=== PATIENT | male | born 1970 | race Caucasian/White ===

== ENCOUNTER 2016-07-28 17:42 | Emergency (ER) | payer OTHER ==
[2016-07-28] MEDS ORDERED: DAPTOMYCIN 800 MG in SODIUM CHLORIDE 0.9% 100 ML IV SCH (18:30)
[2016-07-28 19:06] LABS: CALCIUM 9.4 mg/dL (8.6-10.3)
== END 2016-07-28 20:29 | disposition home or self-care (01) ==
LOC: ED 17:42
DX: T84.54XA Infection and inflammatory reaction due to internal left knee prosthesis, initial encounter (principal); Y83.8 Other surgical procedures as the cause of abnormal reaction of the patient, or of later complication, without mention of misadventure at the time of the procedure; Y92.9 Unspecified place or not applicable
CPT/HCPCS: 82550; 87070; 80048; 87205; 99283 ×2; 96365; J7050; J0878

== ENCOUNTER 2016-08-04 10:14 | Inpatient (IN) | payer OTHER ==
[~2016-08-04 10:14] MED LIST: IV START KIT ONE; SODIUM CHLORIDE 0.9% 1,000 ML ONE
[2016-08-04] MEDS ORDERED: GABAPENTIN 600 MG TABLET PO ONE (10:15)
[2016-08-04] MEDS ORDERED: TRANEXAMIC ACID 1,000 MG in SODIUM CHLORIDE 0.9% 100 ML IV PRN (10:15)
[2016-08-04] MEDS ORDERED: POLYMYXIN B SULFATE 500,000 UNITS, BACITRACIN 25,000 UNITS in SODIUM CHLORIDE 3 L IRRIG... IR PRN (10:15)
[2016-08-04] MEDS ORDERED: CELECOXIB 200 MG CAPSULE PO ONE (10:15)
[2016-08-04] MEDS ORDERED: ONDANSETRON 4 MG/2ML 2 ML VIAL IV ONE (10:15)
[2016-08-04] MEDS ORDERED: CLONIDINE HCL 0.1 MG/24 HR (7 DAY PATCH) TD SCH (10:15)
[2016-08-04] MEDS ORDERED: BUPIVACAINE 0.25% (MDV) 20 ML in SODIUM CHLORIDE 0.9% FLUSH 20 ML IF PRN (10:15)
[2016-08-04] MEDS ORDERED: FAMOTIDINE 20 MG TABLET PO ONE (10:15)
[2016-08-04] MEDS ORDERED: BUPIVACAINE 0.25% (MDV) 24 ML, MORPHINE SULFATE 8 MG, EPINEPHRINE 0.3 MG in SODIUM CHLO... IF PRN (10:15)
[2016-08-04] MEDS ORDERED: TRAMADOL HCL 50 MG TABLET PO ONE (10:15)
[2016-08-04] MEDS ORDERED: VANCOMYCIN HCL 1 G/20 ML VIAL ONE (10:15)
[2016-08-04] MEDS ORDERED: OXYCODONE HCL 10 MG TAB.SR PO ONE ×2 (10:15→11:34)
[2016-08-04] MEDS ORDERED: CEFAZOLIN SODIUM 2 GRAM PREMIX 100 ML IV PRN (10:15)
[2016-08-04] MEDS ORDERED: TOBRAMYCIN SULFATE 40 MG/ML 2ML VIAL ONE (10:15)
[2016-08-04] MEDS ORDERED: TRAMADOL HCL 50 MG TABLET ONE (11:34)
[2016-08-04] MEDS ORDERED: CLONIDINE HCL 0.1 MG/24 HR (7 DAY PATCH) TD ONE (11:35)
[2016-08-04] MEDS ORDERED: FAMOTIDINE 20 MG TABLET ONE (11:35)
[2016-08-04] MEDS ORDERED: ONDANSETRON 4 MG/2ML 2 ML VIAL ONE (11:35)
[2016-08-04] MEDS ORDERED: GABAPENTIN 600 MG TABLET ONE (11:35)
[2016-08-04] MEDS ORDERED: CELECOXIB 200 MG CAPSULE ONE (11:36)
[2016-08-04] MEDS ORDERED: ROPIVACAINE 0.5% 30 ML VIAL ONE (12:38)
[2016-08-04] MEDS ORDERED: NERVE BLOCK PROCEDURAL TRAY 1 EACH ONE (12:39)
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
[2016-08-04] MEDS ORDERED: BUPIVACAINE 0.75% SPINAL AMPUL 2 ML ONE (13:28)
[2016-08-04] MEDS ORDERED: NALOXONE HCL 0.4 MG/ML VIAL IV PRN (13:49)
[2016-08-04] MEDS ORDERED: HYDROMORPHONE HCL 1 MG/ML SYRINGE IV PRN ×2 (13:49→17:44)
[2016-08-04] MEDS ORDERED: HYDRALAZINE HCL 20 MG/1 ML VIAL IV PRN (13:49)
[2016-08-04] MEDS ORDERED: LABETALOL HCL 5 MG/ML 20ML VIAL IV PRN (13:49)
[2016-08-04] MEDS ORDERED: ON-Q PUMP/ROPIVACAINE 0.2% 450 ML in PREMIX BAG 1 EACH NB PRN ×2 (13:49→17:44)
[2016-08-04] MEDS ORDERED: ATROPINE SULFATE 0.4 MG/1 ML VIAL IV PRN (13:49)
[2016-08-04] MEDS ORDERED: PROMETHAZINE HCL 25 MG/ML VIAL IM PRN (13:49)
[2016-08-04] MEDS ORDERED: MEPERIDINE 25 MG/ML SYRINGE IV PRN (13:49)
[2016-08-04] MEDS ORDERED: FENTANYL 100 MCG/2 ML VIAL IV PRN (13:49)
[2016-08-04] MEDS ORDERED: ONDANSETRON 4 MG/2ML 2 ML VIAL IV PRN ×2 (13:49→17:44)
[2016-08-04] MEDS ORDERED: LACTATED RINGERS 1,000 ML IV SCH (14:00)
[2016-08-04] MEDS ORDERED: EPHEDRINE SULFATE UD SYR 25 MG 25 MG/5 ML SYRINGE IV ONE (14:22)
[2016-08-04] MEDS ORDERED: PROPOFOL 20 ML IV ONE ×7 (14:47→16:57)
[2016-08-04 15:01] LABS: BODY FLUID COLOR RED
[2016-08-04 15:02] LABS: BODY FLUID APPEARANCE BLOODY; BODY FLUID RBC 420 k/uL; BODY FLUID WBC 13687 /uL
[2016-08-04 15:04] LABS: BODY FLUID SOURCE KNEE
[2016-08-04] MEDS ORDERED: CEFAZOLIN SODIUM 1,000 MG VIAL ONE (15:38)
[2016-08-04 15:49] LABS: BODY FLUID MONONUCLEAR 8 %; BODY FLUID NEUTROPHIL 92 %
[2016-08-04] MEDS ORDERED: ON-Q PUMP/ROPIVACAINE 0.2% 450 ML ONE (16:41)
[2016-08-04] MEDS ORDERED: MIDAZOLAM HCL 5 MG/5 ML VIAL ONE (16:55)
[2016-08-04] MEDS ORDERED: FENTANYL 250 MCG/5 ML AMP ONE (16:56)
--- NOTE | 2016-08-04 17:14 | PCMBPN ---
Brief Post Op Note: Date of Procedure: 08/04/16 Preoperative Diagnosis: septic LTKA with chronic infected hematoma left leg Postoperative Diagnosis: same Procedure: I/D left knee with poly exchange Surgeon: Omar Tatum MD Assist: Zenon (JUNE) Anesthesia: spinal/add block (Breann) Findings: infrequent clusters >5 WBC/HPF on all three specimens, grossly healthy appearing hypertrophic fibrous tissue intraarticular with proximal/ medial chronic hematoma with intraarticular extension Condition: stable to PAR Complications: none IV Fluids: per anesthesia Urine Output: per anesthesia Estimated Blood Loss: [] mLs Tourniquet Time: [N/A] Specimens: frozen section x3, gm stain/cx x3 Implants: 12.5 RP/PS poly Drains: incisional wound vac
[2016-08-04] MEDS ORDERED: HYDROMORPHONE HCL 1 MG/ML SYRINGE ONE (17:15)
--- NOTE | 2016-08-04 17:38 | RAD ---
LEFT KNEE 2 VIEWS HISTORY: Postop revision. Frontal and lateral radiographs of the left knee. COMPARISON: 04/04/2016 FINDINGS: POSTPROCEDURAL CHANGE: Status post total knee arthroplasty. Multiple radiodensities, correlate for an antibiotic bead placement. ALIGNMENT: Grossly anatomic. FRACTURE: None identified. Dystrophic calcifications again seen. ADDITIONAL POSTPROCEDURAL FINDINGS: Residual prepatellar soft tissue prominence. Surgical diaz. IMPRESSION: Grossly unremarkable immediate post procedural appearance of the left knee. Post arthroplasty change. Correlate for antibiotic bead placement.
[2016-08-04] MEDS ORDERED: CALCIUM CARBONATE 500 MG TAB.CHEW PO PRN (17:44)
[2016-08-04] MEDS ORDERED: KETOROLAC TROMETHAMINE 30 MG/ML 1 ML VIAL IV PRN (17:44)
[2016-08-04] MEDS ORDERED: OXYCODONE HCL 5 MG TABLET PO PRN (17:44)
[2016-08-04] MEDS ORDERED: HYDROXYZINE PAMOATE 25 MG CAPSULE PO PRN (17:44)
[2016-08-04] MEDS ORDERED: HYDROMORPHONE HCL 0.5 MG/0.5 ML SYRINGE IV PRN (18:00)
[2016-08-04] MEDS ORDERED: HYDROMORPHONE HCL 2 MG/ML SYRINGE IV PRN (18:01)
[2016-08-04 18:14] VITALS: BMI 38.9
[2016-08-04] MEDS: ACETAMINOPHEN 500 MG TABLET PO SCH ×2 (19:24→23:21)
[2016-08-04] MEDS ORDERED: PUMP TUBING ONE (19:31)
[2016-08-04] MEDS: VANCOMYCIN HCL 1.75 G in SODIUM CHLORIDE 0.9% 500 ML IV SCH (19:50)
[2016-08-04] MEDS: NS/Potassium Chlor 20 mEq 1,000 ML IV SCH (19:50)
[2016-08-04] MEDS ORDERED: INSULIN ASPART (DOSE) 100 UNITS/1 ML SUB-Q PRN (21:16)
[2016-08-04] MEDS: DOCUSATE SODIUM 100 MG CAPSULE PO SCH (21:37)
[2016-08-04] MEDS: ASCORBIC ACID 500 MG TABLET PO SCH (21:37)
[2016-08-04] MEDS: INSULIN GLARGINE (DOSE) 100 UNITS/ML UNIT SUB-Q SCH (21:56)
[2016-08-04] MEDS: OXYCODONE HCL 10 MG TAB.SR PO SCH (23:21)
[2016-08-05] MEDS ORDERED: TRAMADOL HCL 50 MG TABLET PO PRN
[2016-08-05] MEDS: VANCOMYCIN HCL 1.75 G in SODIUM CHLORIDE 0.9% 500 ML IV SCH ×3 (03:53→20:07)
[2016-08-05] MEDS: TEMAZEPAM 15 MG CAPSULE PO PRN ×2 (03:54→23:17)
[2016-08-05] MEDS: NS/Potassium Chlor 20 mEq 1,000 ML IV SCH ×3 (05:52→18:01)
[2016-08-05 06:06] LABS: HEMATOCRIT 38.1 % (32.0-52.0); HEMOGLOBIN 11.7 gm/l (14.0-18.0); MEAN CELL VOLUME 84.9 fl (80.0-94.0); MEAN CORPUSCULAR HEMOGLOBIN 26.1 pg (27.0-31.0); MEAN CORPUSCULAR HGB CONC 30.7 g/dl (33.0-37.0); RED CELL DISTRIBUTION WIDTH 14.6 % (11.5-14.5)
[2016-08-05 06:30] LABS: CALCIUM 8.5 mg/dL (8.6-10.3)
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
[2016-08-05] MEDS: ACETAMINOPHEN 500 MG TABLET PO SCH ×4 (08:09→23:15)
[2016-08-05] MEDS: ASPIRIN (ENTERIC COATED) 325 MG TABLET.EC PO SCH (08:09)
[2016-08-05] MEDS: OXYCODONE HCL 10 MG TAB.SR PO SCH ×2 (08:09→20:08)
[2016-08-05] MEDS: MULTIVITAMINS 1 TAB TABLET PO SCH (08:09)
[2016-08-05] MEDS: DOCUSATE SODIUM 100 MG CAPSULE PO SCH ×2 (08:09→20:08)
[2016-08-05] MEDS: ASCORBIC ACID 500 MG TABLET PO SCH ×2 (08:09→20:08)
[2016-08-05] MEDS: DICLOFENAC SODIUM 75 MG TABLET.EC PO SCH ×2 (08:09→20:08)
[2016-08-05] MEDS ORDERED: REMOVE PATCH 1 EACH UNIT TD SCH (10:15)
[2016-08-05] MEDS ORDERED: REMOVE PATCH 1 EACH UNIT TD ONE (11:51)
--- NOTE | 2016-08-05 12:59 | PDOC43 ---
- Subjective Chief Complaint: Left knee pain Subjective: Reports Pain Tolerable, Reports Tolerating Diet Well, Denies Fever - Objective Vital Signs Temperature 98.6 F 08/05/16 11:24 Pulse Rate 71 08/05/16 11:24 Respiratory Rate 20 08/05/16 11:24 Blood Pressure 147/92 08/05/16 11:24 O2 Saturation by Pulse Oximetry 99 08/05/16 11:24 Oxygen Delivery Method Room Air Oxygen Flow Rate 0 Intake and Output 08/04/16 08/05/16 08/06/16 06:59 06:59 06:59 Intake Total 3350 Output Total 2225 Balance 1125 General: Alert, Oriented x3, Cooperative, No Acute Distress HEENT: Mucous membr. moist/pink Lungs: Clear to Auscultation Bilaterally Cardiovascular: Regular Rate and Rhythm Abdomen: Soft, Normal Bowel Sounds, Non-Distended, No Tenderness Extremities: No Edema Skin: Warm, Dry, Intact Wound: Dressing Clean/Dry/Intact Laboratory 08/05/16 05:30 08/05/16 05:30 08/05/16 08/04/16 08/04/16 05:30 21:41 16:44 RBC 4.49 L MCH 26.1 L MCHC 30.7 L RDW 14.6 H POC Capillary Glucose 237 H 113 H Calcium 8.5 L Current Medications: Current meds reviewed in EMR. - Problems: Assessment/Plan (1) Status post total knee replacement, left Status: AcuteAssessment/Plan: S/P first stage revision arthroplasty performed on 08/[address] Tatum, bacterial infection with unspec. organism infection initial prosthesis s/p poly exchange and placement of antibiotic beads on 08/04, may benefit from ID consult prior to discharge (2) DM2 (diabetes mellitus, type 2) Qualifiers: Diabetes mellitus complication status: without complication Diabetes mellitus detention insulin use: without detention use Qualifier Code: (E11.9 ) Type 2 diabetes mellitus without complications Status: ChronicAssessment/ Plan: on Metformin - stable (3) Chronic back pain greater than 3 months duration Status: ChronicAssessment/Plan: with chronic pain controlled on NSAIDS (4) Obesity (BMI 35.0-39.9 without comorbidity) Status: ChronicAssessment/Plan: complicates care VTE Prophylaxis: aspirin plus mech measures
--- NOTE | 2016-08-05 14:17 | PDOC43 ---
- Subjective Findings: Pt was seen in the am. Sitting up in the recliner doing well. He has been up with PT walking. Subjective: Reports Pain Tolerable, Denies Chest Pain, Denies Shortness of Breath, Denies Nausea, Denies Vomiting, Denies Fever - Objective Vital Signs Temperature 98.6 F 08/05/16 11:24 Pulse Rate 71 08/05/16 11:24 Respiratory Rate 20 08/05/16 11:24 Blood Pressure 147/92 08/05/16 11:24 O2 Saturation by Pulse Oximetry 99 08/05/16 11:24 Oxygen Delivery Method Room Air Oxygen Flow Rate 0 Laboratory 08/05/16 05:30 08/05/16 05:30 08/05/16 08/04/16 08/04/16 05:30 21:41 16:44 RBC 4.49 L MCH 26.1 L MCHC 30.7 L RDW 14.6 H POC Capillary Glucose 237 H 113 H Calcium 8.5 L Active Medication Orders Category Date Time Status Acetaminophen [Tylenol] Med 08/04/16 17:44 Active 1,000 mg PO Q6H Ascorbic Acid [Vitamin C] Med 08/04/16 21:00 Active 500 mg PO BID Aspirin (Enteric Coated) [Ecotrin] Med 08/05/16 09:00 Active 325 mg PO DAILY Bisacodyl [Dulcolax] Med 08/07/16 16:39 Active 10 mg FL DAILY PRN Calcium Carbonate [Tums] Med 08/04/16 17:44 Active 1,000 - 2,000 mg PO Q2H PRN Diclofenac Sodium [Voltaren] Med 08/05/16 09:00 Active 75 mg PO BID Docusate Sodium [Colace] Med 08/04/16 21:00 Active 100 mg PO BID Hydromorphone HCl [Dilaudid] Med 08/04/16 17:44 Active 0.5 - 2 mg IV Q2H PRN Hydromorphone HCl [Dilaudid] Med 08/04/16 18:00 Active 0.5 - 2 mg IV Q2H PRN Hydromorphone HCl [Dilaudid] Med 08/04/16 18:01 Active 0.5 - 2 mg IV Q2H PRN Hydroxyzine Pamoate [Vistaril] Med 08/04/16 17:44 Active 25 - 50 mg PO Q4H PRN Insulin Aspart (Dose) [Novolog (Dose)] Med 08/04/16 21:16 Active See Protocol SUB-Q WM/BEDTIME PRN Insulin Glargine (Dose) [Lantus (Dose)] Med 08/04/16 21:30 Active 15 units SUB-Q Q24H Ketorolac Tromethamine [Toradol] Med 08/04/16 17:44 Active 30 mg IV Q6H PRN Magnesium Hydroxide [Milk of Magnesia] Med 08/05/16 16:39 Active 30 ml PO DAILY PRN Multivitamins [One-A-Day] Med 08/05/16 09:00 Active 1 tab PO DAILY NS/Potassium Chlor 20 mEq 1,000 ml Med 08/04/16 17:44 Active IV 125 mls/hr On-Q Pump/Ropivacaine 0.2% 450 ml Med 08/04/16 17:44 Active Premix Bag [Premix Fluid] 1 each NB Q50H Ondansetron 4 mg/2ml Vial [Zofran] Med 08/04/16 17:44 Active 4 - 6 mg IV Q6H PRN Oxycodone HCl [Roxicodone] Med 08/04/16 17:44 Active 5 - 15 mg PO Q3H PRN Oxycodone Sr [Oxycontin] Med 08/04/16 22:00 Active 10 mg PO Q12HR Sodium Chloride 0.9% Flush [Normal Saline 10ml Flush] Med 08/04/16 17:44 Active 10 - 50 ml IV PRN PRN Sodium Chloride 0.9% Flush [Normal Saline 10ml Flush] Med 08/05/16 09:00 Active 10 ml IV Q8HR Temazepam [Restoril] Med 08/04/16 17:44 Active 15 mg PO BEDTIME PRN Tramadol HCl [Ultram] Med 08/05/16 00:00 Active 50 mg PO Q6H PRN Vancomycin HCl 1.75 g Med 08/04/16 19:30 Active Sodium Chloride 0.9% 500 ml IV Q8H Intake and Output 08/03/16 08/04/16 08/05/16 23:59 23:59 23:59 Intake Total 2350 1000 Output Total 425 1800 Balance 1925 -800 General: Afebrile HEENT: Atraumatic Lungs: Normal Air Movement Abdomen: Non-Distended Skin: Normal Color Neurological: Alert, Oriented x 4 - Left Lower Extremity Motor: Extensor Hallucis Longus: 5/5, Tibialis Anterior: 5/5, Gastrocnemius: 5/5 , Peroneals: 5/5, Quadriceps: 3/5 Gross Sensation to Light Touch: Present: Deep Peroneal Nerve, Superficial Peroneal Nerve Motion: Calf soft NT Ind SLR Rom knee 0-50 - Problems (1) Status post total knee replacement, left Status: AcuteAssessment/Plan: Pod#1 S/P I&D for infected TKA 1. Physical Therapy:Mobilize with PT/OT 2. Pain Control:Per protocol and nerve cath 3. DVT Prophylaxis: ASA. foot pumps and mobility 4. Disposition:Doing fair. Will need PICC line and IV antibiotics. Pending C&S 5. Medical Issues: Management per hospitalist. Will need PICC and sensitivities prior to discharge (2) Status post incision and drainage Status: Acute
[2016-08-05] MEDS ORDERED: LIDOCAINE 1% (PRES FREE) 5 ML VIAL PF PRN (14:19)
[2016-08-05] MEDS ORDERED: LORAZEPAM 2 MG/ML 1ML SDV IV PRN (14:19)
[2016-08-05] MEDS ORDERED: MAGNESIUM HYDROXIDE 30 ML UDCUP PO PRN (16:39)
[2016-08-05 19:47] LABS: VANCOMYCIN TROUGH 16.7 ug/ml (5.0-10.0)
[2016-08-05] MEDS ORDERED: SODIUM CHLORIDE 0.9% 100 ML IV ONE (20:06)
[2016-08-05] MEDS: INSULIN GLARGINE (DOSE) 100 UNITS/ML UNIT SUB-Q SCH (21:25)
[2016-08-06] MEDS: VANCOMYCIN HCL 1.75 G in SODIUM CHLORIDE 0.9% 500 ML IV SCH ×3 (03:20→18:13)
[2016-08-06] MEDS: ACETAMINOPHEN 500 MG TABLET PO SCH ×3 (05:28→17:52)
[2016-08-06 06:11] LABS: HEMATOCRIT 37.4 % (32.0-52.0); HEMOGLOBIN 11.8 gm/l (14.0-18.0)
--- NOTE | 2016-08-06 08:21 | PDOC43 ---
- Subjective Subjective: Reports Pain Tolerable, Denies Nausea, Denies Vomiting, Denies Fever - Objective Vital Signs Temperature 97.5 F 08/06/16 08:02 Pulse Rate 70 08/06/16 08:02 Respiratory Rate 18 08/06/16 08:02 Blood Pressure 153/111 08/06/16 08:02 O2 Saturation by Pulse Oximetry 100 08/06/16 08:02 Oxygen Delivery Method Room Air Oxygen Flow Rate 0 Laboratory 08/06/16 05:30 08/05/16 19:20 08/05/16 08/05/16 19:20 14:14 POC Capillary Glucose 170 H Vancomycin Trough 16.7 H Active Medication Orders Category Date Time Status Acetaminophen [Tylenol] Med 08/04/16 17:44 Active 1,000 mg PO Q6H Ascorbic Acid [Vitamin C] Med 08/04/16 21:00 Active 500 mg PO BID Aspirin (Enteric Coated) [Ecotrin] Med 08/05/16 09:00 Active 325 mg PO DAILY Bisacodyl [Dulcolax] Med 08/07/16 16:39 Active 10 mg MO DAILY PRN Calcium Carbonate [Tums] Med 08/04/16 17:44 Active 1,000 - 2,000 mg PO Q2H PRN Diclofenac Sodium [Voltaren] Med 08/05/16 09:00 Active 75 mg PO BID Docusate Sodium [Colace] Med 08/04/16 21:00 Active 100 mg PO BID Hydromorphone HCl [Dilaudid] Med 08/04/16 18:00 Active 0.5 - 2 mg IV Q2H PRN Hydromorphone HCl [Dilaudid] Med 08/04/16 18:01 Active 0.5 - 2 mg IV Q2H PRN Hydroxyzine Pamoate [Vistaril] Med 08/04/16 17:44 Active 25 - 50 mg PO Q4H PRN Insulin Aspart (Dose) [Novolog (Dose)] Med 08/04/16 21:16 Active See Protocol SUB-Q WM/BEDTIME PRN Insulin Glargine (Dose) [Lantus (Dose)] Med 08/04/16 21:30 Active 15 units SUB-Q Q24H Lidocaine 1% (Pres Free) Med 08/05/16 14:19 Active 2 - 5 ml PF X1 PRN Lorazepam [Ativan] Med 08/05/16 14:19 Active 0.5 - 1 mg IV X1 PRN Magnesium Hydroxide [Milk of Magnesia] Med 08/05/16 16:39 Active 30 ml PO DAILY PRN Multivitamins [One-A-Day] Med 08/05/16 09:00 Active 1 tab PO DAILY On-Q Pump/Ropivacaine 0.2% 450 ml Med 08/04/16 17:44 Active Premix Bag [Premix Fluid] 1 each NB Q50H Ondansetron 4 mg/2ml Vial [Zofran] Med 08/04/16 17:44 Active 4 - 6 mg IV Q6H PRN Oxycodone HCl [Roxicodone] Med 08/04/16 17:44 Active 5 - 15 mg PO Q3H PRN Oxycodone Sr [Oxycontin] Med 08/04/16 22:00 Active 10 mg PO Q12HR Sodium Chloride 0.9% Flush [Normal Saline 10ml Flush] Med 08/04/16 17:44 Active 10 - 50 ml IV PRN PRN Sodium Chloride 0.9% Flush [Normal Saline 10ml Flush] Med 08/05/16 09:00 Active 10 ml IV Q8HR Temazepam [Restoril] Med 08/04/16 17:44 Active 15 mg PO BEDTIME PRN Tramadol HCl [Ultram] Med 08/05/16 00:00 Active 50 mg PO Q6H PRN Vancomycin HCl 1.75 g Med 08/04/16 19:30 Active Sodium Chloride 0.9% 500 ml IV Q8H Intake and Output 08/04/16 08/05/16 08/06/16 23:59 23:59 23:59 Intake Total 2350 3595 1870 Output Total 425 4600 2450 Balance 1925 -1005 -580 General: Afebrile, No Acute Distress Lungs: Normal Air Movement Abdomen: Soft Skin: Normal Color Neurological: Alert, Oriented x 4 Psych/Mental Status: Normal Affect, Normal Mood - Left Lower Extremity Incision: Other (incisional wound vac in place- small amount of distal bloody drainage, 1+ knee effusion, leg swelling minimal with calf soft/NT), No Drainage Motor: Extensor Hallucis Longus: 5/5, Tibialis Anterior: 5/5, Gastrocnemius: 5/5 Gross Sensation to Light Touch: Present: Deep Peroneal Nerve, Superficial Peroneal Nerve Capillary Refill: < 3 Seconds Motion: 5-75 supine AAROM - Problems (1) Status post incision and drainage Status: Acute (2) Status post total knee replacement, left Status: AcuteAssessment/Plan: Pod#2 S/P I&D for infected TKA 1. Physical Therapy:Mobilize with PT/OT- outpatient per protocol 2. Pain Control: Per protocol and nerve cath- decreased to 6cc/hr 3. DVT Prophylaxis: ASA. foot pumps and mobility 4. Disposition: Doing well. Home today after evening dose- will see Girod in AM. Discussed D/C needs 5. Medical Issues: Management per hospitalist. PICC today- will continue vanco as cultures are still pending from intraoperative. Outside Cx + for Staph epi
[2016-08-06 08:35] LABS: A1C-GLYCOHEMOGLOBIN 0.6 g/dl; HEMOGLOBIN-GLYCO 11.5 g/dl
--- NOTE | 2016-08-06 10:10 | PDOC43 ---
- Subjective Chief Complaint: Left knee pain Subjective: Reports Pain Tolerable, Reports Tolerating Diet Well, Denies Fever - Objective Vital Signs Temperature 97.5 F 08/06/16 08:02 Pulse Rate 70 08/06/16 08:02 Respiratory Rate 18 08/06/16 08:02 Blood Pressure 153/111 08/06/16 08:02 O2 Saturation by Pulse Oximetry 100 08/06/16 08:02 Oxygen Delivery Method Room Air Oxygen Flow Rate 0 Intake and Output 08/05/16 08/06/16 08/07/16 06:59 06:59 06:59 Intake Total 3350 4465 Output Total 2225 5250 Balance 1125 -785 General: Alert, Oriented x3, Cooperative, No Acute Distress HEENT: Mucous membr. moist/pink Lungs: Clear to Auscultation Bilaterally Cardiovascular: Regular Rate and Rhythm Abdomen: Soft, Normal Bowel Sounds, Non-Distended, No Tenderness Extremities: No Edema Wound: Dressing Clean/Dry/Intact Laboratory 08/06/16 05:30 08/05/16 19:20 08/06/16 08/05/16 08/05/16 05:30 19:20 14:14 POC Capillary Glucose 170 H Hemoglobin A1c 7.1 H Vancomycin Trough 16.7 H Current Medications: Current meds reviewed in EMR. - Problems: Assessment/Plan (1) Status post total knee replacement, left Status: AcuteAssessment/Plan: S/P first stage revision arthroplasty performed on 08/[address] Tatum, bacterial infection with staph epidermis involving initial prosthesis s/p poly exchange and placement of antibiotic beads on 08/04 - plan to consult with Dr Manrique(ID) in am, cont Vanco until then, PICC today (2) DM2 (diabetes mellitus, type 2) Qualifiers: Diabetes mellitus complication status: without complication Diabetes mellitus jail insulin use: without jail use Qualifier Code: (E11.9 ) Type 2 diabetes mellitus without complications Status: ChronicAssessment/ Plan: on Metformin, HGBA1C at 7.1 - stress diet improvement, consider adding low dose glimepride if not improveing in next 6 weeks with goal A1C of 6.5 (3) Chronic back pain greater than 3 months duration Status: ChronicAssessment/Plan: with chronic pain controlled on NSAIDS (4) Obesity (BMI 35.0-39.9 without comorbidity) Status: ChronicAssessment/Plan: complicates care VTE Prophylaxis: aspirin plus mech measures Disposition: Anticipate discharge this afternoon
[2016-08-06] MEDS: DICLOFENAC SODIUM 75 MG TABLET.EC PO SCH (10:48)
[2016-08-06] MEDS: ASCORBIC ACID 500 MG TABLET PO SCH (10:49)
[2016-08-06] MEDS: MULTIVITAMINS 1 TAB TABLET PO SCH (10:49)
[2016-08-06] MEDS: ASPIRIN (ENTERIC COATED) 325 MG TABLET.EC PO SCH (10:50)
[2016-08-06] MEDS: DOCUSATE SODIUM 100 MG CAPSULE PO SCH (10:50)
[2016-08-06] MEDS: OXYCODONE HCL 10 MG TAB.SR PO SCH (10:50)
--- NOTE | 2016-08-06 13:20 | RAD ---
PORTABLE CHEST RADIOGRAPH HISTORY: PICC placement. Frontal portable chest radiograph dated 08/06/2016. COMPARISON: 02/22/2015. FINDINGS: FOCAL AIRSPACE OPACITY: No gross airspace consolidation. PLEURAL EFFUSION: None. CARDIOMEDIASTINAL SILHOUETTE: Mild cardiomegaly. Right upper extremity approach venous catheter, tip projecting over atriocaval junction, PICC nurse aware. PNEUMOTHORAX: None identified. OSSEOUS STRUCTURES: Redemonstration of prior malleable plate and screw fixation of the left clavicle. IMPRESSION: No acute cardiopulmonary process noted. Mild cardiomegaly without vascular congestion or pulmonary edema. Right-sided PICC in place.
[2016-08-06] MEDS ORDERED: SODIUM CHLORIDE 0.9% 100 ML IV ONE (17:27)
[2016-08-06] MEDS ORDERED: PUMP TUBING ONE (17:28)
[2016-08-06] MEDS ORDERED: SODIUM CHLORIDE 0.9% 1,000 ML IV SCH (18:20)
[2016-08-06 19:57] VITALS: BP 154/98
[2016-08-07] MEDS ORDERED: BISACODYL 10 MG SUP PR PRN (16:39)
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
== END 2016-08-06 20:20 | disposition home or self-care (01) | DRG 487 ==
LOC: OR 10:14 → MS 18:13
PROVIDERS: ADMIT Orthopaedic Surgery; ATTEND Orthopaedic Surgery
PROC: 0SPD09Z Removal of Liner from Left Knee Joint, Open Approach (ICD-10-PCS; principal; 2016-08-04)
PROC: 0SUW09Z Supplement Left Knee Joint, Tibial Surface with Liner, Open Approach (ICD-10-PCS; 2016-08-04)
PROC: 0S9D0ZX Drainage of Left Knee Joint, Open Approach, Diagnostic (ICD-10-PCS; 2016-08-04)
DX: T84.54XA Infection and inflammatory reaction due to internal left knee prosthesis, initial encounter (principal); B95.8 Unspecified staphylococcus as the cause of diseases classified elsewhere; E11.9 Type 2 diabetes mellitus without complications; Z79.84 Long term (current) use of oral hypoglycemic drugs